=== PATIENT | female | born 1945 | race Caucasian/White ===

== ENCOUNTER 2022-10-24 13:47 | Outpatient (CLI) | payer MEDICARE, OTHER ==
[2022-10-24 15:06] LABS: #Basophils 0.1 10x3/uL (0.0-0.2); #Eosinphils 0.2 10x3/uL (0.0-0.5); #Monocytes 0.8 10x3/uL (0.0-1.1); #Neutrophils 4.8 10x3/uL (1.5-8.4); %Basophils 0.7 % (0.0-2.0); %Eosinophils 2.8 % (0.0-6.0); %Lymphocytes 18.3 % (18.0-47.0); %Neutrophils 66.8 % (40.0-75.0); Hemoglobin 11.8 g/dL (12.0-15.5); Mean Corpuscular HGB CONC 32.1 g/dL (32.0-36.0); Mean Corpuscular Hemoglobin 31.5 pg (27.0-33.0); Mean Corpuscular Volume 98.1 fl (81.6-98.3); Mean Platelet Volume 10.3 fl (7.4-10.4); Platelet Count 223 10x3/uL (150-450); RBC Distribution Width 14.3 % (11.5-14.5); Red Blood Cell (RBC) Count 3.75 10x6/uL (3.90-5.03); White Blood Cell (WBC) Count 7.2 10x3/uL (3.5-10.5)
[2022-10-24 15:31] LABS: Anion Gap 20 mmol/L (10-20); BUN (Urea Nitrogen) 90 mg/dL (9.8-20.1); Calc. Creatinine Clearance 0 mL/min (70-130); Calcium 11.2 mg/dL (7.8-10.44); Carbon Dioxide 15 mmol/L (23-31); Chloride 109 mmol/L (98-107); Estimated GFR 9; Glucose 107 mg/dL (83-110); Potassium 5.6 mmol/L (3.5-5.1); Sodium 138 mmol/L (136-145)
== END 2022-10-24 13:48 | disposition home or self-care (01) ==
LOC: LABBT 13:47
PROVIDERS: ATTEND Specialist
DX: Z01.812 Encounter for preprocedural laboratory examination (principal); N18.9 Chronic kidney disease, unspecified
CPT/HCPCS: 80048; 85025

== ENCOUNTER 2022-10-31 06:25 | Day surgery (SDC) | payer MEDICARE, OTHER ==
[2022-10-30 11:12] VITALS: BMI 32.4
[2022-10-31] MEDS ORDERED: Fentanyl 250 MCG/5 ML VIAL ONE (08:40)
[2022-10-31] MEDS ORDERED: Lidocaine 2% PF 5 ML VIAL ONE (08:43)
[2022-10-31] MEDS ORDERED: Bupivacaine/Epinephrine 0.25% 30 ML VIAL ONE (08:43)
[2022-10-31] MEDS ORDERED: Heparin 10,000 UNITS/ 10 ML VIAL ONE (08:43)
[2022-10-31] MEDS ORDERED: Heparin 5,000 UNITS/ML VIAL ONE (08:43)
[2022-10-31] MEDS ORDERED: Protamine Sulfate 50 MG/5 ML VIAL ONE (08:43)
[2022-10-31] MEDS ORDERED: Sodium Chloride 0.9% 100 ML ONE (09:08)
[2022-10-31] MEDS ORDERED: CEFAZOLIN 2 GM VIAL ONE (09:08)
[2022-10-31] MEDS ORDERED: Ondansetron PF 4 MG/2 ML Vial ONE (09:20)
[2022-10-31] MEDS ORDERED: NEOSTIGMINE 3 MG/3 ML SYR 3 MG/3 ML SYRINGE ONE (09:20)
[2022-10-31] MEDS ORDERED: Glycopyrrolate 0.2 MG/ML 5 ML SYRINGE ONE (09:20)
[2022-10-31] MEDS ORDERED: PROPOFOL 200 MG/20 ML VIAL ONE (09:20)
[2022-10-31] MEDS ORDERED: Dexamethasone 20 MG/5 ML VIAL ONE (09:20)
[2022-10-31] MEDS ORDERED: Lidocaine 1% PF 5 ML VIAL ONE (09:20)
[2022-10-31] MEDS ORDERED: Rocuronium Bromide 10 MG/ML (10ML VIAL) ONE (09:20)
== END 2022-10-31 13:05 | disposition home or self-care (01) ==
LOC: SDC 06:25
PROVIDERS: ATTEND Specialist
PROC: 031C0ZF Bypass Left Radial Artery to Lower Arm Vein, Open Approach (ICD-10-PCS; principal; 2022-10-31)
PROC: 0WHG43Z Insertion of Infusion Device into Peritoneal Cavity, Percutaneous Endoscopic Approach (ICD-10-PCS; 2022-10-31)
PROC: 0DQU4ZZ Repair Omentum, Percutaneous Endoscopic Approach (ICD-10-PCS; 2022-10-31)
DX: I12.0 Hypertensive chronic kidney disease with stage 5 chronic kidney disease or end stage renal disease (principal); N18.6 End stage renal disease; D63.1 Anemia in chronic kidney disease; E78.5 Hyperlipidemia, unspecified; I25.10 Atherosclerotic heart disease of native coronary artery without angina pectoris; I25.2 Old myocardial infarction; I08.1 Rheumatic disorders of both mitral and tricuspid valves; I49.5 Sick sinus syndrome; M19.90 Unspecified osteoarthritis, unspecified site; G89.4 Chronic pain syndrome; Z79.82 Long term (current) use of aspirin; Z79.899 Other long term (current) drug therapy; Z95.0 Presence of cardiac pacemaker; Z95.5 Presence of coronary angioplasty implant and graft
CPT/HCPCS: C1776; J1100; J1644; J2001; J2405; J2704; J2720; J3010; J3490

== ENCOUNTER 2025-04-09 11:21 | Outpatient (CLI) | payer MEDICARE, OTHER ==
[2025-04-09 13:33] LABS: #Basophils 0.03 10x3/uL (0.0-0.2); #Eosinophils 0.11 10x3/uL (0.0-0.7); #Monocytes 0.69 10x3/uL (0.11-0.59); %Basophils 0.8 % (0.0-1.0); %Eosinophils 2.8 % (0.0-10.0); %Lymphocytes 31.5 % (21.0-51.0); %Monocytes 17.3 % (0.0-10.0); %Neutrophils 47.3 % (42.0-75.0); Hematocrit 34.3 % (36.0-47.0); Hemoglobin 10.8 g/dL (12.0-16.0); Mean Corpuscular HGB CONC 31.5 g/dL (32.0-36.0); Mean Corpuscular Volume 98.6 fL (78.0-98.0); Mean Platelet Volume 10.4 fL (7.4-10.4); Platelet Count 201 10x3/uL (130-400); RBC Distribution Width 16.9 % (11.5-14.5); Red Blood Cell (RBC) Count 3.48 mill/uL (4.20-5.40)
[2025-04-09 13:49] LABS: INR-International Normal Ratio 1.1; PTT 31.3 sec (22.9-36.1); Prothrombin Time 14.5 sec (12.0-14.7)
[2025-04-09 13:52] LABS: Anion Gap 12 mmol/L (10-20); BUN (Urea Nitrogen) 18 mg/dL (9.8-20.1); Calc. Creatinine Clearance 0 mL/min (70-130); Calcium 9.1 mg/dL (7.8-10.44); Carbon Dioxide 34 mmol/L (23-31); Chloride 99 mmol/L (98-107); Estimated GFR 12; Glucose 113 mg/dL (83-110); Potassium 3.6 mmol/L (3.5-5.1); Sodium 141 mmol/L (136-145)
== END 2025-04-09 11:22 | disposition home or self-care (01) ==
LOC: LABBT 11:21
PROVIDERS: ATTEND Surgery
DX: Z01.818 Encounter for other preprocedural examination (principal); N18.6 End stage renal disease
CPT/HCPCS: 85610; 85730

== ENCOUNTER 2025-09-06 11:50 | Outpatient (CLI) | payer MEDICARE, OTHER ==
[2025-09-06 13:00] LABS: #Basophils 0.04 10x3/uL (0.0-0.2); #Eosinophils 0.11 10x3/uL (0.0-0.7); #Monocytes 0.71 10x3/uL (0.11-0.59); #Neutrophils 3.88 10x3/uL (1.40-6.50); %Basophils 0.6 % (0.0-1.0); %Eosinophils 1.7 % (0.0-10.0); %Lymphocytes 24.4 % (21.0-51.0); %Monocytes 11.3 % (0.0-10.0); %Neutrophils 61.7 % (42.0-75.0); Hematocrit 27.1 % (36.0-47.0); Hemoglobin 8.5 g/dL (12.0-16.0); Mean Corpuscular Hemoglobin 30.5 pg (27.0-31.0); Mean Corpuscular Volume 97.1 fL (78.0-98.0); Platelet Count 204 10x3/uL (130-400); Red Blood Cell (RBC) Count 2.79 mill/uL (4.20-5.40); White Blood Cell (WBC) Count 6.30 10x3/uL (4.8-10.8)
[2025-09-06 13:17] LABS: Anion Gap 17 mmol/L (10-20); BUN (Urea Nitrogen) 23 mg/dL (9.8-20.1); Calc. Creatinine Clearance 0 mL/min (70-130); Calcium 8.8 mg/dL (7.8-10.44); Carbon Dioxide 30 mmol/L (23-31); Chloride 96 mmol/L (98-107); Glucose 105 mg/dL (83-110); Potassium 3.8 mmol/L (3.5-5.1); Sodium 139 mmol/L (136-145)
[2025-09-06 13:59] LABS: INR-International Normal Ratio 1.0; Prothrombin Time 13.4 sec (12.0-14.7)
[2025-09-06 14:01] LABS: PTT 29.6 sec (22.9-36.1)
== END 2025-09-06 11:51 | disposition home or self-care (01) ==
LOC: LABBT 11:50
PROVIDERS: ATTEND Surgery
DX: Z01.818 Encounter for other preprocedural examination (principal); N18.6 End stage renal disease
CPT/HCPCS: 71046; 80048; 85025; 85610; 85730; 93005; 93010